=== PATIENT | female | born 1970 | race Caucasian/White ===

== ENCOUNTER 2021-08-05 15:50 | Emergency (ER) | payer SELFPAY ==
[2021-08-05 17:49] LABS: RED BLOOD COUNT 4.96 M/UL (4.00-5.10); WHITE BLOOD COUNT 11.9 K/UL (4.5-11.0)
[2021-08-05 18:17] LABS: BUN/CREATININE RATIO 12 (0-10)
[2021-08-05] MEDS ORDERED: OMNICEF 300 MG300 MG PO (21:45)
[2021-08-05] MEDS ORDERED: ZOFRAN 4 MG TAB4 MG PO (21:45)
== END 2021-08-05 22:00 | disposition home or self-care (01) ==
LOC: ER1 15:50
PROVIDERS: Physician Assistant
DX: N39.0 Urinary tract infection, site not specified (principal); R51.9 Headache, unspecified; E87.6 Hypokalemia; Z20.822 Contact with and (suspected) exposure to COVID-19; F17.200 Nicotine dependence, unspecified, uncomplicated; Z88.0 Allergy status to penicillin
CPT/HCPCS: 0240U; 71045; 80053; 81001; 83605; 85025; 87040; 87077; 87086; 87186; 93005; 96374; 96375; 99284; J0696; J1885

== ENCOUNTER 2021-08-07 00:36 | Emergency (ER) | payer SELFPAY ==
[~2021-08-07 00:36] MED LIST: OMNICEF 300 MG300 MG PO; ZOFRAN 4 MG TAB4 MG PO
[2021-08-07 02:02] LABS: HEMOGLOBIN 13.2 gm/dl (12.3-15.3); WHITE BLOOD COUNT 14.8 K/UL (4.5-11.0)
[2021-08-07 02:04] LABS: RED BLOOD COUNT 4.39 M/UL (4.00-5.10)
[2021-08-07 02:53] LABS: BUN/CREATININE RATIO 12 (0-10)
== END 2021-08-07 04:48 | disposition home or self-care (01) ==
LOC: ER1 00:36
PROVIDERS: Family Medicine
DX: N39.0 Urinary tract infection, site not specified (principal); F17.210 Nicotine dependence, cigarettes, uncomplicated
CPT/HCPCS: 71046; 80053; 81001; 82550; 82553; 83605; 84484; 85025; 85652; 86140; 87040; 87086; 96374; 99284; J1885

== ENCOUNTER 2021-08-08 12:53 | Observation (INO) | payer SELFPAY ==
[~2021-08-08] VITALS: Ht 165.1 cm; Wt 61.2 kg
[2021-08-08 14:49] LABS: HEMOGLOBIN 13.4 gm/dl (12.3-15.3); RED BLOOD COUNT 4.46 M/UL (4.00-5.10); WHITE BLOOD COUNT 9.9 K/UL (4.5-11.0)
[2021-08-08 15:22] LABS: BUN/CREATININE RATIO 12 (0-10)
[2021-08-09 02:58] LABS: HEMOGLOBIN 11.5 gm/dl (12.3-15.3)
[2021-08-09 03:01] LABS: RED BLOOD COUNT 3.9 M/UL (4.00-5.10); WHITE BLOOD COUNT 15.5 K/UL (4.5-11.0)
[2021-08-09 03:18] LABS: BUN/CREATININE RATIO 6 (0-10)
[2021-08-09 13:26] LABS: HEMOGLOBIN 11.6 gm/dl (12.3-15.3); RED BLOOD COUNT 3.9 M/UL (4.00-5.10); WHITE BLOOD COUNT 17.1 K/UL (4.5-11.0)
[2021-08-09] MEDS ORDERED: LEVOFLOXACIN750 MG PO (14:23)
[2021-08-09 14:33] LABS: BUN/CREATININE RATIO 10 (0-10)
== END 2021-08-09 15:55 | disposition home or self-care (01) ==
LOC: ER1 12:53 → CDU 17:23 → M/S 20:43
PROVIDERS: Physician Assistant Medical; Preventive Medicine Occupational Medicine; ADMIT Internal Medicine
DX: N30.00 Acute cystitis without hematuria (principal); B96.20 Unspecified Escherichia coli [E. coli] as the cause of diseases classified elsewhere; K82.8 Other specified diseases of gallbladder; F41.9 Anxiety disorder, unspecified; F17.210 Nicotine dependence, cigarettes, uncomplicated; Z20.822 Contact with and (suspected) exposure to COVID-19; Z88.0 Allergy status to penicillin; Z88.1 Allergy status to other antibiotic agents
CPT/HCPCS: 0240U; 76705; 80048; 80053; 81001; 83690; 83735; 85025; 85027; 86140; 87086; 96365; 96368; 96375; 96376; 99285; G0378; J0692; J0696; J1885; J2060; J2405; J3480; Q9967

== ENCOUNTER 2021-08-16 16:29 | Emergency (ER) | payer SELFPAY ==
[~2021-08-16 16:29] MED LIST changes: +LEVOFLOXACIN750 MG PO
== END 2021-08-16 18:30 | disposition left against medical advice (07) ==
LOC: ER1 16:29
DX: R10.13 Epigastric pain (principal); R11.2 Nausea with vomiting, unspecified; F17.210 Nicotine dependence, cigarettes, uncomplicated; Z90.89 Acquired absence of other organs
CPT/HCPCS: 93005; 99283